=== PATIENT | female | born 1995 | race American Indian/Alaskan Native ===

== ENCOUNTER 2022-02-02 20:02 | Emergency (ER) | payer OTHER ==
[~2022-02-02] VITALS: Ht 160 cm; Wt 90.9 kg
[2022-02-02 20:37] VITALS: TEMP 98.3
[2022-02-02 21:36] LABS: BASO % 0.2 % (0.0-2.0); EOS # 0.1 K/mm3 (0.0-0.7); EOS % 1.7 % (0.0-4.0); GRAN # 3.6 K/mm3 (1.4-6.5); GRAN % 62.7 % (42.2-75.2); HEMOGLOBIN 11.6 g/dl (12.5-16.0); LYMPH # 1.5 K/mm3 (1.2-3.4); LYMPH % 26.3 % (20.0-51.0); MEAN CELL VOLUME 82 fl (80.0-100.0); MEAN CORPUSCULAR HEMOGLOBIN 27 pg (27-31); MEAN CORPUSCULAR HGB CONC 33 g/dl (33.0-37.0); MEAN PLATELET VOLUME 10.6 fl (7.4-10.4); MONO # 0.5 K/mm3 (0.1-0.6); MONO % 8.9 % (1.7-9.3); PLATELET COUNT 267 K/mm3 (130-400); RED BLOOD COUNT 4.32 M/mm3 (4.10-5.30); REDCELL DISTRIBUTION WIDTH-CV 14.1 % (11.5-14.5)
[2022-02-02 21:39] LABS: HEMATOCRIT 35.4 % (37.0-47.0)
[2022-02-02 22:03] LABS: ALBUMIN 4.2 gm/dL (3.5-5.0); BILIRUBIN,TOTAL 0.6 mg/dL (0.2-1.2); CALCIUM 9.2 mg/dL (8.4-10.2); COLLECTION METHOD CLEAN CATCH; CREATININE, serum 0.82 mg/dL (0.57-1.11); POTASSIUM 3.7 mmol/L (3.5-4.5); TOTAL PROTEIN 7.8 gm/dL (6.2-8.1)
[2022-02-02 22:13] LABS: MUCOUS Present (NOT PRESENT); PH 5 (5-8); URINE APPEARANCE Hazy (CLEAR/HAZY); URINE BACTERIA None Seen /hpf (NONE SEEN); URINE BILIRUBIN Negative (NEGATIVE); URINE BLOOD Negative (NEGATIVE); URINE COLOR Amber (YELLOW); URINE GLUCOSE Negative (NEGATIVE); URINE KETONE 2+ (NEGATIVE); URINE LEUKOCYTE ESTERASE 1+ (NEGATIVE); URINE NITRATE Negative (NEGATIVE); URINE PROTEIN(semi-quant) Negative (NEGATIVE); URINE UROBILINOGEN Negative (NEGATIVE)
[2022-02-03 00:10] VITALS: BP 125/81; PULSE 98
[2022-02-03] MEDS ORDERED: REGLAN 10MG10 MG/TAB PO (00:16)
[2022-02-03] MEDS ORDERED: ULTRAM 50MG TAB50 MG PO (00:16)
[2022-02-03] MEDS ORDERED: DIFLUCAN200 MG PO (17:46)
== END 2022-02-03 00:35 | disposition home or self-care (01) ==
LOC: COL.ER 20:02
PROVIDERS: Emergency Medicine
DX: N73.9 Female pelvic inflammatory disease, unspecified (principal); R10.13 Epigastric pain; Z88.5 Allergy status to narcotic agent
CPT/HCPCS: J1885; J2765; J7030; Q9967

== ENCOUNTER 2024-06-20 19:22 | Emergency (ER) | payer SELFPAY ==
[~2024-06-20] VITALS: Ht 162.6 cm; Wt 100.0 kg
[~2024-06-20 19:22] MED LIST: DIFLUCAN200 MG PO; REGLAN 10MG10 MG/TAB PO; ULTRAM 50MG TAB50 MG PO
[2024-06-20 19:44] VITALS: TEMP 98
[2024-06-20 20:20] LABS: COLLECTION METHOD CLEAN CATCH
[2024-06-20 20:29] LABS: PH 5.5 (5.0-8.5); URINE APPEARANCE CLOUDY (CLEAR/HAZY); URINE BLOOD TRACE (NEGATIVE); URINE COLOR YELLOW (YELLOW); URINE GLUCOSE NEGATIVE (NEGATIVE); URINE KETONE TRACE (NEGATIVE); URINE NITRATE NEGATIVE (NEGATIVE); URINE PROTEIN(semi-quant) NEGATIVE (NEGATIVE)
[2024-06-20 21:10] VITALS: BP 134/90; PULSE 70
== END 2024-06-20 21:10 | disposition home or self-care (01) ==
LOC: COL.ER 19:22
PROVIDERS: Nurse Practitioner
DX: O9A.211 Injury, poisoning and certain other consequences of external causes complicating pregnancy, first trimester (principal); R10.2 Pelvic and perineal pain; Z3A.08 8 weeks gestation of pregnancy; W18.30XA Fall on same level, unspecified, initial encounter

== ENCOUNTER 2024-07-03 16:11 | Emergency (ER) | payer SELFPAY ==
[~2024-07-03] VITALS: Ht 162.6 cm; Wt 100.0 kg
[2024-07-03 16:16] VITALS: BP 109/73; TEMP 98.8
[2024-07-03 18:45] VITALS: PULSE 95
== END 2024-07-03 18:45 | disposition home or self-care (01) ==
LOC: COL.ER 16:11
DX: O26.891 Other specified pregnancy related conditions, first trimester (principal); R05.9 Cough, unspecified; Z3A.10 10 weeks gestation of pregnancy